=== PATIENT | male | born 1965 | race Caucasian/White ===

== ENCOUNTER 2025-03-06 10:29 | Observation (INO) ==
[2025-03-06] MEDS ORDERED: ONDANSETRON 4 MG/2 ML VIAL IVP PRN ×2 (10:39→17:23)
[2025-03-06] MEDS ORDERED: METOCLOPRAMIDE 10 MG/2 ML VIAL IVP PRN (10:39)
[2025-03-06] MEDS ORDERED: ACETAMINOPHEN 500 MG TABLET PO PRN (10:39)
[2025-03-06] MEDS: LACTATED RINGERS 1,000 ML IV PRN ×2 (11:00→12:44)
--- NOTE | 2025-03-06 11:41 | ANESTHESIA PROCEDURE NOTE ---
Pre-Anesthesia VS, & Labs Diagnosis Surgical Diagnosis:: rectal mass Procedure Procedure: sigmoidoscopy NPO NPO: >8 hours Meds/Allgy Home Medications Ambulatory Orders Medication Instructions Recorded Confirmed levofloxacin 500 mg tablet 500 mg PO Q24H 7 days #7 ta bs 03/03/25 03/06/25 amoxicillin .ROUTE 03/06/25 Allergies Allergies Allergy/AdvReac Type Severity Reaction Status Date / Time No Known Drug Allergies Allergy Verified 12/16/24 10:34 PFSH Active Problems All Active Problems (Updated 03/06/25 @ 11:13 by Kimi Porter, TRACY) Rectal mass (Acute) Mass of anus (Acute) Prostatitis (Acute) Medical History Medical History (Updated 03/06/25 @ 11:13 by Kimi Porter, TRACY) Blood urine Social History Social History (Updated 03/06/25 @ 11:40 by Pao Nath CRNA) Smoking Status: Former smoker ETOH Use: None Anesthesia Exam (Expanded) Exam General: Alert, Oriented x3 and Cooperative Dental: Poor dentition Mouth Openin Fingerbreadth Neck Mobility: Normal Mallampati classification: I Thyromental Distance: 4-6 cm Other Exam Comments:: Pale Plan Plan Anesthesia Type: General and Total IV Consent for Procedure(s) Verified and Reviewed: Yes Code Status: Attempt Resuscitation ASA Classification ASA classification: 4-Incapacitating disease Is this case an emergency?: No
[2025-03-06] MEDS: SALINE ENEMA 133 ML BOTTLE RC SCH (11:48)
[2025-03-06 12:00] LABS: HCT - HEMATOCRIT 23.8 % (42.0-52.0); HGB - HEMOGLOBIN 7.5 g/dL (14.0-18.0)
--- NOTE | 2025-03-06 12:27 | HISTORY & PHYSICAL EXAMINATION ---
Chief Complaint Chief Complaint Chief Complaint: Anorectal mass with anorectal pain and obstipation History of Present Illness Admitted From Admitted From:: Not History Obtained From Records Reviewed: Yes History obtained from: Patient, chart, Dr. Clay Exam Limitations: None History of Present Illness HPI Comment/Other: I was called last Thursday evening by Dr. Satya garcia and asked to see this patient for an anorectal mass associated with anorectal pain and obstipation. 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 The purpose of the scope is to obtain tissue for pathologic diagnosis. The patient moved up here from [place] I believe approximately 3 years ago. 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 He states that initially he had quite a bit of energy but with time that this is really fallen off. The past 3 months have been particularly hard. He has lost approximately 30 pounds and has very little to no energy. He is also noted blood in his stool when he has a bowel movement. His appetite is also decreased. I do not have any record of a previous colon evaluation. He had been scheduled to see me in January of this year but canceled that due to "financial concerns." Meds/Allgy Home Medications Ambulatory Orders Medication Instructions Recorded Confirmed levofloxacin 500 mg tablet 500 mg PO Q24H 7 days #7 ta bs 03/03/25 03/06/25 amoxicillin .ROUTE 03/06/25 Allergies Allergies Allergy/AdvReac Type Severity Reaction Status Date / Time No Known Drug Allergies Allergy Verified 12/16/24 10:34 PFSH Active Problems All Active Problems (Updated 03/06/25 @ 11:13 by Kimi Porter RN) Rectal mass (Acute) Mass of anus (Acute) Prostatitis (Acute) Medical History Medical History (Updated 03/06/25 @ 11:13 by Kimi Porter RN) Blood urine Social History Social History (Updated 03/06/25 @ 11:40 by Pao Nath CRNA) Smoking Status: Former smoker ETOH Use: None Review of Systems I did not perform an extensive review of systems as it is not indicated today but issues include decreased energy, weight loss, anorectal pain, anorectal bleeding, anorectal mass, abdominal distention, and some shortness of breath. Exam Exam Vital Signs: Vital Signs x48h Temp Pulse Resp BP Pulse Ox 03/06/25 12:48 36 C L 58 L 16 110/70 100 03/06/25 11:45 68 16 94/64 97 03/06/25 11:15 36 C L 77 16 77/60 L 98 General: 59-year old male, appears much older than stated age, well developed, cachectic with bitemporal wasting HEENT: Normocephalic, atraumatic, extraocular movement intact, mucous membranes pink and moist, sclera anicteric and not injected, coles hair Neck: Supple without pain on palpation, mass or bruit Cardiac: Regular rate and rhythm without rub, gallop, or murmur Chest: Clear to auscultation bilaterally Abdomen: Firm but not hard, slightly decreased bowel sounds, could not appreciate hepatosplenomegaly due to patient's abdominal process Genitourinary: Deferred Rectal: Deferred until sigmoidoscopy Extremities: No gross neurovascular problem, no clubbing, cyanosis or edema Gait: No gross motor deficit Psychiatric: Alert and oriented to person place and time, asks and answers questions appropriately, mood and affect appropriate Conclusion/Plan Problem List (1) Rectal mass: Plan: Sigmoidoscopy with possible biopsies and/or polypectomies. Indications, procedure, alternatives (such as no procedure at all) and risks including but not limited to perforation requiring operative repair, bleeding with its risks, and were fully explained to him. Review of his history does not reveal any significant systemic disease that would contraindicate use of conscious sedation or MAC anesthesia but he is very deconditioned. All questions were fully answered. Verbal and written consent was obtained. The patient in preparation for his sigmoidoscopy has been n.p.o. and his colon will be mechanically prepped with an enema. I had extensive discussion with the patient explaining that this likely represents malignancy and that depending on the pathology treatment may involve chemo and radiation therapy as well as surgery. This will be dependent on the pathology that is determined today but my concern is that his current clinical condition is such that I am not even sure that he could tolerate a loop colostomy at our institution. I explained some of this to him. He did vocalized understanding. 45 minutes of [id number] time spent with the patient, the majority of which was spent in discussion, coordination of care, and completion of the requisite paperwork CPT 68333 (2) Mass of anus: Lab Results 03/06/25 12:43 03/06/25 12:43
[2025-03-06 12:51] LABS: HCT - HEMATOCRIT 22.6 % (42.0-52.0); HGB - HEMOGLOBIN 7.2 g/dL (14.0-18.0); MEAN PLATELET VOLUME 8.7 fL (7.4-11.4); NRBC ABSOLUTE COUNT (AUTO) 0.00 x10^3/uL; NUCLEATED RED BLOOD CELLS AUTO 0.0 /100WBC; PLT - PLATELET COUNT 392 10^3/uL (130-450); RED CELL DISTRIBUTION WIDTH 14.6 % (12.0-15.0)
[2025-03-06 13:03] LABS: ALT ALANINE AMINOTRANSFERASE 11.0 IU/L (10-60); AST ASPARTATE AMINOTRANSFERASE 12.0 IU/L (10-42); BUN - BLOOD UREA NITROGEN 12.0 mg/dL (6-20); CARBON DIOXIDE - CO2 31.0 mmol/L (21-32); CREATININE 0.9 mg/dL (0.6-1.3); GFR - MDRD 86.0 (>89)
[2025-03-06] MEDS ORDERED: PROPOFOL 200 MG/20 ML VIAL IVP ONE (13:07)
--- NOTE | 2025-03-06 14:20 | ANESTHESIA POST OP EVALUATION ---
Anesthesia Post Eval Post Anesthesia Eval Vitals: Last Vital Signs Temp 36.1 C L 03/06/25 14:00 Pulse 59 L 03/06/25 14:00 Resp 14 03/06/25 14:00 BP 90/53 L 03/06/25 14:00 Pulse Ox 99 03/06/25 14:00 CV Function Including HR & BP: Stable Pain Control: Satisfactory Nausea & Vomiting: Negative Mental Status: Baseline Respiratory Status: Airway Patent Hydration Status: Satisfactory Anesthesia Complications: None
--- NOTE | 2025-03-06 16:46 | PROVIDER PROGRESS NOTE ---
Progress Note Progress Note Progress Note: After performing the sigmoidoscopy where multiple biopsies were taken but there is clearly a obstructing or nearly obstructing tumor at 13 cm from the anal verge (measured) as well as multiple other polyps. The patient has also had chronic blood from his bladder secondary to the colovesical fistula. Additionally CT scan revealed several areas of the lungs that appear to be metastatic tumor (or primary). Upon presentation today the patient presented with hypotension that was mildly responsive to fluids but the administration of fluids is clearly going to diminish his hemoglobin and hematocrit further. Upon presentation he was 7.5 but it already has dropped to 7.2. As such I have concern for his hypotension and ongoing anemia as well as ongoing blood loss I have brought him into the hospital as an observation patient and I will transfuse 2 units of blood in order to treat his hypotension due to blood loss. His endoscopic findings combined with his story and radiographic findings is consistent with a highly complex situation whereupon this rectal malignancy (pathology pending) is causing problems with his bladder as well as his colon. It is only a matter of time before he starts having emesis due to the inability to pass any stool. Antibiotics have been prescribed in order to prevent an ascending infection of his kidneys. I have a telephone call into Dr. Imelda Rock regarding the discussion of a transfer due to the complex nature of this case. While I wait for response I will transfuse this gentleman to aid with his hypotension and try to keep up with his ongoing blood loss. I discussed the possible treatments for this including chemo and radiation therapy as well as temporizing surgical measures. Additional studies also need to be performed including a likely dedicated CT scan of his chest to look at the lung lesions, and possible PET scan. The patient vocalized understanding of the above and is in agreement with the transfusion. Following the transfusion I will check his CBC and CMP in the morning. One does not need to be done in the interim as this is being done for blood loss and hypotension not to have his hemoglobin and hematocrit hit a particular value.
[2025-03-06] MEDS: HYDROmorphone 0.5 MG/0.5 ML SYRINGE IVP PRN (17:56)
[2025-03-06] MEDS: ACETAMINOPHEN 325 MG TABLET PO ONE (17:56)
[2025-03-07 05:12] LABS: HCT - HEMATOCRIT 32.3 % (42.0-52.0); HGB - HEMOGLOBIN 10.9 g/dL (14.0-18.0); MEAN PLATELET VOLUME 9.1 fL (7.4-11.4); PLT - PLATELET COUNT 399 10^3/uL (130-450); RED CELL DISTRIBUTION WIDTH 14.4 % (12.0-15.0)
[2025-03-07 05:29] LABS: ABNORMAL LYMPHS % (MANUAL) 0 %; BASOPHILS # (MANUAL) 0.0 10^3/uL (0-0.1); EOSINOPHILS # (MANUAL) 0.0 10^3/uL (0-0.7)
[2025-03-07 06:32] LABS: BAND NEUTROPHILS % (MANUAL) 24 %; LYMPHOCYTES # (MANUAL) 1.3 10^3/uL (1.5-3.5); LYMPHOCYTES % (MANUAL) 10 %; MONOCYTES # (MANUAL) 0.3 10^3/uL (0.0-1.0); NEUTROPHILS # (MANUAL) 11.3 10^3/uL (1.5-6.6)
[2025-03-07 06:33] LABS: PLATELET ESTIMATE, MANUAL NORMAL (130-450,000) (NORMAL); PLATELET MORPHOLOGY NORMAL APPEARANCE (NORMAL); RBC MORPHOLOGY (MULTIPLE) NORMAL APPEARANCE (NORMAL)
--- NOTE | 2025-03-07 12:53 | PHARMACY PROGRESS NOTE ---
Best Possible Medication History Admit Date and Time: 03/06/25 1607 Home Medications Medication Instructions Recorded Confirmed Type levofloxacin 500 mg tablet 500 mg PO Q24H 7 days #7 ta bs 03/03/25 03/06/25 Rx Augmentin 875 mg-potassium 1 tab PO BID 03/07/2503/07 History clavulanate 125 mg tablet Processed by: Pharmacy (Medication reconciliation completed by [employer]) Medications reviewed in ED?: No Medication History completed: Yes Patient Interview: Completed Secondary Source(s): Pharmacy records [facility] Statement: As the person ultimately responsible for medication therapy, providers are able to order a medication from an existing home medication list in [facility] via the "Reconcile Routine" prior to Confirmation of that medication by software support analyst. Such practice is discouraged except when the physician, in their clinical judgment, deems that a medical need exists for a medication without regard to previous use.
--- NOTE | 2025-03-07 13:19 | Discharge Summary ---
Discharge Summary Admit Date: 03/06/25 Discharge Date: 03/07/25 Discharging Provider: Milton Lockhart MD Primary Care Provider: SHAHZAD Campbell Code Status: Attempt Resuscitation DIAGNOSES Admission Diagnoses: Proximal rectal obstruction by mass (likely malignant with pathology pending) with rectovesical fistula, anemia, protein malnutrition, pulmonary masses concerning for malignancy Discharge Diagnoses with Status of Each Condition: Unchanged other anemia improved HPI History of Present Illness: I was called last Thursday evening by Dr. Clay and asked to see this patient for an anorectal mass associated with anorectal pain and obstipation. 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 The purpose of the scope is to obtain tissue for pathologic diagnosis. The patient moved up here from [place] I believe approximately 3 years ago. 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 He states that initially he had quite a bit of energy but with time that this is really fallen off. The past 3 months have been particularly hard. He has lost approximately 30 pounds and has very little to no energy. He is also noted blood in his stool when he has a bowel movement. His appetite is also decreased. I do not have any record of a previous colon evaluation. He had been scheduled to see me in January of this year but canceled that due to "financial concerns." HOSPITAL COURSE Hospital Course: I brought him in under observation status yesterday to transfuse him as he was anemic AND hypotensive. His surgical issues exceed the capability of our critical access hospital. ALLERGIES Allergies Allergy/AdvReac Type Severity Reaction Status Date / Time No Known Drug Allergies Allergy Verified 12/16/24 10:34 MEDICATIONS Ambulatory Orders Medication Instructions Recorded Confirmed levofloxacin 500 mg tablet 500 mg PO Q24H 7 days #7 ta bs 03/03/25 03/06/25 Augmentin 875 mg-potassium 1 tab PO BID 03/07/2503/07 clavulanate 125 mg tablet PHYSICAL EXAM AT DISCHARGE Vital Signs: Vital Signs x48h Temp Pulse Resp BP Pulse Ox 03/07/25 12:47 36.8 C 87 20 103/68 93 03/07/25 07:42 36.6 C 81 20 102/64 95 General: Cachectic ill appearing 59-year old male, appears older than stated age HEENT: Normocephalic, atraumatic, extraocular movement intact, mucous membranes pink and moist, sclera anicteric and not injected, bitemporal wasting, sclera are not as white today, Mallampati 2 Neck: Supple without pain on palpation, mass or bruit Cardiac: Regular rate and rhythm without rub, gallop, or murmur Chest: Clear to auscultation bilaterally Abdomen: Firm, with the outline of his bowel titus clearly palpable, no peritoneal findings, decreased bowel sounds Genitourinary: Deferred Rectal: Deferred Extremities: No gross neurovascular problem, no clubbing, cyanosis or edema, generally weak, wasting at the snuffbox bilateral Gait: No gross motor deficit Psychiatric: Alert and oriented to person place and time, asks and answers questions appropriately, mood and affect appropriate LABS 03/07/25 04:37 03/06/25 12:43 DIAGNOSTIC IMAGING Diagnostic Imaging Results: Final report reviewed TIME SPENT Time Spent in Discharge (Minutes): 45 Discharge Plan Discharge Patient Disposition: 02 Transfer Acute Care Hosp Medically Cleared Date:: 03/07/25 Medically Cleared Comments:: Patient requires transfer to a higher level of care. Prescriptions: No Action levofloxacin 500 mg tablet 500 mg PO Q24H 7 Days Qty: 7 0RF amoxicillin-pot clavulanate 875-125 mg tablet 1 tab PO BID Rx Instructions: 14 DAYS Health Concerns: Patient requires multidisciplinary approach to medical-surgical issues (general surgery, urology, medicine, oncology, nutrition, radiology, radiation therapy). Care Plan Goals: See above. Assessment: Obstructing rectal mass with rectovesical fistula Plan of Treatment: Patient requires multidisciplinary approach to medical- surgical issues (general surgery, urology, medicine, oncology, nutrition, radiology, radiation therapy). Print Language: Albanian Patient Instructions: Surg Dc Follow-up Care: SERGEI CARLIN PA [Primary Care Provider, Physician Cocktail Server] Report called to and time (if no answer, doc. time of each call attempted): Dr. Imelda Rock Vitals documented within 30 minutes of discharge?: Yes
[2025-03-07 17:07] VITALS: BP 109/69; TEMP 98.1; O2SAT 93
== END 2025-03-07 17:07 | disposition short-term general hospital (02) ==
LOC: MS2 10:29 → SDS 10:29
PROVIDERS: ADMIT Surgery; ATTEND Surgery